=== PATIENT | male | born 1955 | race Caucasian/White ===

== ENCOUNTER 2017-05-05 13:20 | Day surgery (SDC) | payer MEDICAID ==
[~2017-05-05] VITALS: Ht 188 cm; Wt 149.7 kg
[~2017-05-05 13:20] MED LIST: ACETAMINOPHEN &1 TA1 PO; ALBUTEROL1.25 MG/3 IH; ASPIRIN 81MG TA81 MG PO; CYCLOBENZAPRINE10 MG PO; GABAPENTIN300 MG PO; HYDROCODONE-APA1 TA2 PO; HYDROCODONE/ACE1 TA5 PO; HYDROCODONE1 TABLE1 PO; KEFLEX 500MG.500 MG PO; LASIX20 MG PO; LISINOPRIL 10MG10 MG PO; LOVASTATIN20 MG PO; MEDROL 4MG. DOSE4 MG PO; METFORMIN1000 MG PO; NAPROSYN500 M1 PO; NIQUIL OR; NOMEDS; NOVOLIN 70/30 710 ML SC; TESSALON PERLE100 MG PO; THERAFLU FLU &1 PDS PO; VENTOLIN H0.09 MG/AC IH; WELLBUTRIN SR100 MG PO
[2017-05-05 13:32] VITALS: BP 157/78
[2017-05-05 14:03] VITALS: BP 157/78
[2017-05-05 14:04] VITALS: BP 173/93
--- NOTE | 2017-05-05 14:17 | Procedure Note ---
Procedure detail Date of procedure: 05/05/17 Anesthesiologist: Panda Souza Complications: None Pre-procedure diagnosis: Degenerative disease lumbar spine multiple levels. Lumbar facet arthropathy. Lumbar spondylosis. Post-procedure diagnosis: Same. Indications for procedure: This patient's a pleasant morbidly obese 59-year-old white male we are treating her pain clinic for quite some time for chronic low back pain he describes as constant, dull, aching. He rates his low back pain 6/10. He has recently status post medial branch block lumbar spine L3-4, L4-5, L5-S1. Patient reports 75 percent improvement terms of low back pain. He presents our procedural clinic today for radiofrequency ablation of the RIGHT L3-4, L4-5, L5-S1. Procedure detail: The procedure was explained to the patient in detail. Consent form was signed. Patient was taken back to the procedure room, where noninvasive monitors were placed. This included noninvasive blood pressure cuff and pulse oximeter. The patient was placed prone on the C-arm table. The area over the lumbar spine was cleansed using chlorhexidine as cleansing solution. Using fluoroscopy guidance, markers were placed over the pedicle at the RIGHT [ L4, L5] as well as over the [sacral ala]. 1% Lidocaine was used to anesthetize the skin with a 25-gauge needle at these markers. Using fluoroscopy guidance the radiofrequency probe was used to access the superior margin of the pedicle at RIGHT [ L4, L5 and the sacral ala]. After negative motor stimulation, 2 mls of 0.25% Marcaine and 10 mg of Depo-Medrol were injected into each needle. We then proceeded with radial frequency ablation at all 3 levels at 80 degrees Celsius 60 seconds. After the lesion was formed the needles were withdrawn. Band-Aids were applied. The patient tolerated the procedure without difficulty. There were no complications Plan and disposition: Patient was reevaluated 10 minutes post procedure. He is doing very well. He will return to see us in the pain clinic for further evaluation. at [id number]
[2017-05-05 14:25] VITALS: BP 153/80
== END 2017-05-05 14:25 | disposition home or self-care (01) ==
LOC: PM 13:20
PROC: 3E0T3TZ Introduction of Destructive Agent into Peripheral Nerves and Plexi, Percutaneous Approach (ICD-10-PCS; principal; 2017-05-05)
PROC: BR161ZZ Fluoroscopy of Lumbar Facet Joint(s) using Low Osmolar Contrast (ICD-10-PCS; 2017-05-05)
DX: M51.36 Other intervertebral disc degeneration, lumbar region (principal); M46.96 Unspecified inflammatory spondylopathy, lumbar region; M47.896 Other spondylosis, lumbar region
CPT/HCPCS: J1030